=== PATIENT | female | born 1990 | race Caucasian/White ===

== ENCOUNTER 2018-06-09 10:52 | Emergency (ER) | payer MEDICAID, OTHER ==
--- NOTE | 2018-06-09 11:26 | ERPHSYRPT ---
- History of Present Illness Time Seen by Provider: 06/09/18 11:26 Source: patient, family Exam Limitations: no limitations Patient Subjective Stated Complaint: N&V Triage Nursing Assessment: Pt c/o of N&V since wakening this morning, hx of DKA , type 1 diabetic, BS 287, reports she took 12 units of Apidra at 0800, hypoactive bowel sounds, vitals wnl, body achy all over Physician History: The patient is a 28-year-old female with her complaining of nausea and vomiting this morning. She has tried to sip T but vomits immediately. She is lightheaded. She has some achy cramping feeling in her upper abdomen. She denies fever or chills. She denies diarrhea. She does complain of being lightheaded when she stands up. Her past medical history is significant for diabetes and ketoacidosis. Timing/Duration: today, sudden Severity: severe Modifying Factors: Improves With: eating (worse) Associated Symptoms: nausea, vomiting, abdominal pain Allergies/Adverse Reactions: pneumococcal vaccine Allergy (Verified 06/09/18 11:21) Home Medications: Insulin Glargine,Hum.rec.anlog [Basaglar Kwikpen U-100] 25 unit SQ HS 06/09/18 [ History] Insulin Glulisine [Apidra] 12 unit SQ TID 06/09/18 [History] Hx Tetanus, Diphtheria Vaccination/Date Given: Yes Hx Influenza Vaccination/Date Given: No Hx Pneumococcal Vaccination/Date Given: Yes (2009) - Review of Systems Constitutional: No Fever, No Chills Eyes: No Symptoms Ears, Nose, & Throat: No Symptoms Respiratory: No Cough, No Dyspnea Cardiac: No Chest Pain, No Edema, No Syncope Abdominal/Gastrointestinal: Abdominal Pain, Nausea, Vomiting, No Diarrhea Genitourinary Symptoms: No Dysuria Musculoskeletal: No Back Pain, No Neck Pain Skin: No Rash Neurological: Dizziness Psychological: No Symptoms Endocrine: No Symptoms Hematologic/Lymphatic: No Symptoms Immunological/Allergic: No Symptoms All Other Systems: Reviewed and Negative - Past Medical History Pertinent Past Medical History: Yes Neurological History: No Pertinent History ENT History: No Pertinent History Cardiac History: No Pertinent History Respiratory History: No Pertinent History Endocrine Medical History: Diabetes Type I Musculoskeletal History: No Pertinent History, Fibromyalgia, Other GI Medical History: No Pertinent History History: No Pertinent History Psycho-Social History: Depression, Other Female Reproductive Disorders: No Pertinent History Other Medical History: in-pt for DKA and abd pain feb 2013 - Past Surgical History Past Surgical History: Yes Neuro Surgical History: No Pertinent History Cardiac: No Pertinent History Respiratory: No Pertinent History Gastrointestinal: Cholecystectomy Genitourinary: No Pertinent History Musculoskeletal: No Pertinent History Female Surgical History: No Pertinent History Other Surgical History: GR 3 [id number] 1 MISC 1 TWINS - Social History Smoking Status: Current every day smoker How long have you smoked: 5 years Exposure to second hand smoke: Yes Drug Use: none Patient Lives Alone: No - Female History Hx Now: No (tubal) - Nursing Vital Signs Nursing Vital Signs: Initial Vital Signs Temperature 97.6 F 06/09/18 11:05 Pulse Rate 99 H 06/09/18 11:05 Blood Pressure 109/72 06/09/18 11:05 O2 Sat by Pulse Oximetry 98 06/09/18 11:05 Pain Scale Pain Intensity 0 - Physical Exam General Appearance: mild distress Eye Exam: PERRL/EOMI, eyes nml inspection Ears, Nose, Throat Exam: dry mucous membranes Neck Exam: normal inspection, non-tender, supple, full range of motion Respiratory Exam: normal breath sounds, lungs clear, No respiratory distress Cardiovascular Exam: normal heart sounds, normal peripheral pulses, tachycardia Gastrointestinal/Abdomen Exam: soft, normal bowel sounds, No tenderness, No mass Pelvic Exam: not done Rectal Exam: not done Back Exam: normal inspection, normal range of motion, No CVA tenderness, No vertebral tenderness Extremity Exam: normal inspection, normal range of motion, pelvis stable Neurologic Exam: alert, oriented x 3, cooperative, normal mood/affect, nml cerebellar function, nml station & gait, sensation nml, No motor deficits Skin Exam: normal color, warm, dry, No rash Lymphatic Exam: No adenopathy SpO2 Interpretation: normal SpO2: 98 Oxygen Delivery: Room Air Ordered Tests: Active Orders 24 hr Category Date Time Status Accucheck STAT Care 06/09/18 11:37 Active Communications Assistant STAT Care 06/09/18 11:38 Active Clean Catch Urine Specimen STAT Care 06/09/18 11:37 Active IV Insertion STAT Care 06/09/18 11:37 Active Pulse Oximetry (ED) STAT Care 06/09/18 11:37 Active ARTERIAL BLOOD GASES Urgent Lab 06/09/18 12:13 Completed CBC W DIFF Stat Lab 06/09/18 11:50 Completed CMP Stat Lab 06/09/18 11:45 Completed ETHYL ALCOHOL Stat Lab 06/09/18 11:45 Completed HCG QUALITATIVE,SERUM Stat Lab 06/09/18 11:45 Completed Lactic Acid Urgent Lab 06/09/18 12:13 Completed UA W/RFX UR CULTURE Stat Lab 06/09/18 12:15 Completed Medication Summary Discontinued Medications Generic Name Dose Route Start Last Admin Trade Name Humera PRN Reason Stop Dose Admin Sodium Chloride 1,000 mls @ 999 mls/hr 06/09/18 11:37 06/09/18 13:23 Sodium Chloride 0.9% 1000 Ml IV 06/09/18 12:37 Infused .Q1H1M STA Infusion Sodium Chloride Confirm 06/09/18 11:52 Sodium Chloride 0.9% 1000 Ml Administered 06/09/18 11:53 Dose 1,000 mls @ ud .ROUTE .STK-MED ONE Sodium Chloride 1,000 mls @ 999 mls/hr 06/09/18 13:25 06/09/18 13:32 Sodium Chloride 0.9% 1000 Ml IV 06/09/18 14:25 999 mls/hr .Q1H1M STA Administration Sodium Chloride Confirm 06/09/18 13:32 Sodium Chloride 0.9% 1000 Ml Administered 06/09/18 13:33 Dose 1,000 mls @ ud .ROUTE .STK-MED ONE Promethazine HCl 25 mg 06/09/18 11:37 06/09/18 11:55 Phenergan 25 Mg Inj IV 06/09/18 11:38 25 mg STAT ONE Administration Promethazine HCl Confirm 06/09/18 11:52 Phenergan 25 Mg Inj Administered 06/09/18 11:53 Dose 25 mg .ROUTE .STK-MED ONE Lab/Rad Data: Laboratory Result Diagrams 06/09/18 11:50 06/09/18 11:45 Laboratory Results 06/09/18 06/09/18 06/09/18 Range/Units 12:15 12:15 12:13 WBC (4.0-10.5) K/mm3 RBC (4.1-5.4) M/mm3 Hgb (12.0-16.0) gm/dl Hct (35-47) % MCV (78-100) fl MCH (26-32) pg MCHC (32-36) g/dl RDW (11.5-14.0) % Plt Count (150-450) K/mm3 MPV (6-9.5) fl Gran % (36.0-66.0) % Eos # (Auto) (0-0.5) Absolute Lymphs (auto) (1.0-4.6) Absolute Monos (auto) (0.0-1.3) Lymphocytes % (24.0-44.0) % Monocytes % (0.0-12.0) % Eosinophils % (0.00-5.0) % Basophils % (0.0-0.4) % Absolute Granulocytes (1.4-6.9) Basophils # (0-0.4) Puncture Site LEFT RADIAL pCO2 33 L (35-45) mmHg pO2 89 (75-100) mmHg Base Excess -5.9 L (-2.0-2.0) O2 Saturation 93.1 L (94-100) g/dF ABG pH 7.36 (7.35-7.45) ABG HCO3 18.6 L (22-28) ABG O2 Sat (Measured) 96.8 (95-100) % Miguel Test YES A-a Gradient 19 a/A Ratio 0.82 Hemoglobin 12.9 Carboxyhemoglobin 3.2 (0.0-6.9) % THgb Methemoglobin 0.6 L (1.4-1.5) % Temperature 37.0 C POC O2 Flow Rate 21 % Sodium (137-145) mmol/L Potassium 3.9 (3.5-5.1) mmol/L Chloride (98-107) mmol/L Carbon Dioxide (22-30) mmol/L Anion Gap (5-15) MEQ/L BUN (7-17) mg/dL Creatinine (0.52-1.04) mg/dL Estimated GFR ML/MIN Glucose (74-106) mg/dL Lactic Acid 1.5 (0.4-2.0) Calcium (8.4-10.2) mg/dL Total Bilirubin (0.2-1.3) mg/dL AST (14-36) U/L ALT (0-35) U/L Alkaline Phosphatase (38-126) U/L Serum Total Protein (6.3-8.2) g/dL Albumin (3.5-5.0) g/dL Serum , Qual (Negative) Urine Color STRAW (YELLOW) Urine Appearance CLEAR (CLEAR) Urine pH 5.0 (5-6) Ur Specific [place] 1.028 (1.005-1.025) Urine Protein NEGATIVE (Negative) Urine Ketones MODERATE (NEGATIVE) Urine Blood NEGATIVE (0-5) Javi/ul Urine Nitrite NEGATIVE (NEGATIVE) Urine Bilirubin NEGATIVE (NEGATIVE) Urine Urobilinogen NEGATIVE (0-1) mg/dL Ur Leukocyte Esterase NEGATIVE (NEGATIVE) Urine WBC (Auto) NONE (0-5) /HPF Urine Mucus (Auto) SLIGHT (NEGATIVE) /HPF Urine Culture Reflexed NO (NO) Urine Glucose >=500 (NEGATIVE) mg/dL Ethyl Alcohol (0-10) mg/dL Group A Strep Antibody NEGATIVE (NEGATIVE) 06/09/18 06/09/18 06/09/18 Range/Units 11:50 11:45 11:45 WBC 12.5 H (4.0-10.5) K/mm3 RBC 4.61 (4.1-5.4) M/mm3 Hgb 13.5 (12.0-16.0) gm/dl Hct 39.9 (35-47) % MCV 86.6 (78-100) fl MCH 29.3 (26-32) pg MCHC 33.8 (32-36) g/dl RDW 13.0 (11.5-14.0) % Plt Count 338 (150-450) K/mm3 MPV 10.3 H (6-9.5) fl Gran % 67.0 H (36.0-66.0) % Eos # (Auto) 0.18 (0-0.5) Absolute Lymphs (auto) 3.16 (1.0-4.6) Absolute Monos (auto) 0.76 (0.0-1.3) Lymphocytes % 25.3 (24.0-44.0) % Monocytes % 6.1 (0.0-12.0) % Eosinophils % 1.4 (0.00-5.0) % Basophils % 0.2 (0.0-0.4) % Absolute Granulocytes 8.35 H (1.4-6.9) Basophils # 0.03 (0-0.4) Puncture Site pCO2 (35-45) mmHg pO2 (75-100) mmHg Base Excess (-2.0-2.0) O2 Saturation (94-100) g/dF ABG pH (7.35-7.45) ABG HCO3 (22-28) ABG O2 Sat (Measured) (95-100) % Miguel Test A-a Gradient a/A Ratio Hemoglobin Carboxyhemoglobin (0.0-6.9) % THgb Methemoglobin (1.4-1.5) % Temperature C POC O2 Flow Rate % Sodium 138 (137-145) mmol/L Potassium 4.0 (3.5-5.1) mmol/L Chloride 107 (98-107) mmol/L Carbon Dioxide 20 L (22-30) mmol/L Anion Gap 14.8 (5-15) MEQ/L BUN 12 (7-17) mg/dL Creatinine 0.39 L (0.52-1.04) mg/dL Estimated GFR > 60.0 ML/MIN Glucose 233 H (74-106) mg/dL Lactic Acid (0.4-2.0) Calcium 8.3 L (8.4-10.2) mg/dL Total Bilirubin 0.60 (0.2-1.3) mg/dL AST 22 (14-36) U/L ALT 21 (0-35) U/L Alkaline Phosphatase 165 H (38-126) U/L Serum Total Protein 6.2 L (6.3-8.2) g/dL Albumin 3.4 L (3.5-5.0) g/dL Serum , Qual NEGATIVE (Negative) Urine Color (YELLOW) Urine Appearance (CLEAR) Urine pH (5-6) Ur Specific [place] (1.005-1.025) Urine Protein (Negative) Urine Ketones (NEGATIVE) Urine Blood (0-5) Javi/ul Urine Nitrite (NEGATIVE) Urine Bilirubin (NEGATIVE) Urine Urobilinogen (0-1) mg/dL Ur Leukocyte Esterase (NEGATIVE) Urine WBC (Auto) (0-5) /HPF Urine Mucus (Auto) (NEGATIVE) /HPF Urine Culture Reflexed (NO) Urine Glucose (NEGATIVE) mg/dL Ethyl Alcohol < 10 (0-10) mg/dL Group A Strep Antibody (NEGATIVE) - Progress Progress: improved Progress Note: 06/09/18 14:35 The patient was given Phenergan 25 mg, 1 L normal saline, and 1 L normal saline by IV. She has not vomited while in the ER. She is resting comfortably. Counseled pt/family regarding: lab results, diagnosis - Departure Time of Disposition: 14:36 Departure Disposition: Home Clinical Impression: Vomiting Condition: Stable Critical Care Time: No Additional Instructions: You have vomiting that has been controlled with Phenergan 25 mg by IV in the ER. You are also given 2 L of normal saline by IV in the ER. Take Phenergan 25 mg every 8 hours as needed. Follow up with your primary medical doctor as needed. Prescriptions: Promethazine HCl 25 mg [Phenergan 25 mg] 25 mg PO Q8H PRN PRN #12 tablet PRN Reason: Nausea/Vomiting
[2018-06-09] MEDS ORDERED: Sodium Chloride 0.9% 1000 ML 1,000 ML IV STA ×2 (11:37→13:25)
[2018-06-09] MEDS ORDERED: Phenergan 25 MG INJ IV ONE (11:37)
[2018-06-09] MEDS ORDERED: Phenergan 25 MG INJ ONE (11:52)
[2018-06-09] MEDS ORDERED: Sodium Chloride 0.9% 1000 ML 1,000 ML ONE ×2 (11:52→13:32)
[2018-06-09 12:15] LABS: BASOPHIL % 0.2 % (0.0-0.4); Basophil (Absolute #) 0.03 (0-0.4); Eosinophil % 1.4 % (0.00-5.0); Eosinophil (Absolute #) 0.18 (0-0.5); Granulocyte Absolute (ANC) 8.35 (1.4-6.9); Hematocrit 39.9 % (35-47); Hemoglobin 13.5 gm/dl (12.0-16.0); Lymphocyte (Absolute #) 3.16 (1.0-4.6); Lymphocytes % 25.3 % (24.0-44.0); Mean Cell Volume 86.6 fl (78-100); Mean Corpuscular Hemoglobin 29.3 pg (26-32); Mean Corpuscular Hgb Concent. 33.8 g/dl (32-36); Mean Platelet Volume 10.3 fl (6-9.5); Monocyte (Absolute #) 0.76 (0.0-1.3); Monocytes % 6.1 % (0.0-12.0); Platelet Count 338 K/mm3 (150-450); Red Blood Count 4.61 M/mm3 (4.1-5.4); White Blood Count 12.5 K/mm3 (4.0-10.5)
[2018-06-09 12:15] LABS: A-aADO2 19; ABG HEMOGLOBIN 12.9; ABG POTASSIUM 3.9 (3.5-5.1); ARTERIAL BLD GAS O2 SATURATION 96.8 % (95-100); ARTERIAL BLOOD GAS BASE EXCESS -5.9 (-2.0-2.0); ARTERIAL BLOOD GAS FIO2 21 %; ARTERIAL BLOOD GAS PCO2 33 mmHg (35-45); ARTERIAL BLOOD GAS PO2 89 mmHg (75-100); ARTERIAL BLOOD GAS pH 7.36 (7.35-7.45); CARBOXYHEMOGLOBIN 3.2 % THgb (0.0-6.9); HCO3- 18.6 (22-28); HGB O2 SAT 93.1 g/dF (94-100); Lactic Acid 1.5 (0.4-2.0); Methhemoglobin 0.6 % (1.4-1.5); paO2 pAO1 0.82
[2018-06-09 12:16] LABS: ABG SITE LEFT RADIAL; ALLEN TEST OK? YES
[2018-06-09 12:47] LABS: Appearance CLEAR (CLEAR); Bilirubin NEGATIVE (NEGATIVE); Blood NEGATIVE Ery/ul (0-5); Glucose >=500 mg/dL (NEGATIVE); Ketones MODERATE (NEGATIVE); Leukocyte Esterase NEGATIVE (NEGATIVE); Nitrite NEGATIVE (NEGATIVE); Protein,Urine Dip NEGATIVE (Negative); Specific Gravity 1.028 (1.005-1.025); Urobilinogen NEGATIVE mg/dL (0-1)
[2018-06-09 13:07] LABS: ALBUMIN 3.4 g/dL (3.5-5.0); ALKALINE PHOSPHATASE 165 U/L (38-126); ANION GAP 14.8 MEQ/L (5-15); BLOOD UREA NITROGEN 12 mg/dL (7-17); CHLORIDE 107 mmol/L (98-107); Calcium 8.3 mg/dL (8.4-10.2); Carbon Dioxide 20 mmol/L (22-30); Creatinine 1 0.39 mg/dL (0.52-1.04); Glucose 233 mg/dL (74-106); SGOT/AST 22 U/L (14-36); SGPT/ALT 21 U/L (0-35); SODIUM 138 mmol/L (137-145); Total Protein 6.2 g/dL (6.3-8.2)
[2018-06-09 13:19] LABS: ETHYL ALCOHOL < 10 mg/dL (0-10)
[2018-06-09 14:53] VITALS: BP 97/59; PULSE 77; O2SAT 97
== END 2018-06-09 14:55 | disposition home or self-care (01) ==
LOC: ED 10:52
DX: R11.2 Nausea with vomiting, unspecified (principal); R42 Dizziness and giddiness; R10.9 Unspecified abdominal pain; E10.9 Type 1 diabetes mellitus without complications; Z79.4 Long term (current) use of insulin
CPT/HCPCS: 36000; 36415; 36600; 80053; 81001; 81025; 82375; 82803; 82962; 83605; 85025; 87651; 93041; 96360; 96361; 96374; 99284; G0480; 80307; J2550